=== PATIENT | female | born 2000 | race Caucasian/White ===

== ENCOUNTER 2018-07-04 14:47 | Inpatient (IN) ==
--- NOTE | 2018-07-04 15:11 | Emergency Department Note ---
Disposition Clinical Impression: Deep vein thrombosis (DVT) of left upper extremity PICC line infection Qualifiers: Encounter type: initial encounter Qualified Code(s): T80.219A - Unspecified infection due to central venous catheter, initial encounter Disposition: Transfer Critical Access Hosp Condition: Good Referrals: NONE,PCP [Primary Care Provider] - Forms: ED Satisfaction Letter Time of Disposition: 16:50 General Adult HPI - General Chief complaint: ED Recheck/Abnormal Lab/Rx Stated complaint: PICC problem Time Seen by Provider: 07/04/18 15:07 Source: patient Limitations: no limitations Nursing Notes Reviewed: Yes Vital Signs Reviewed: Yes - History of Present Illness HPI Narrative: Female patient presenting to the emergency department complaining of a one-week history of redness and pain to her left upper arm. Patient has a PICC line placed. She states that her home health nurse came today to remove it once unable to remove this in the center to the ER. She reports erythema and warmth to this area for the past week. She thought this was secondary to a tape allergy. She denies any shortness of breath or chest pain. She states she would not be here if it was not for the PICC not coming out. She has been on vancomycin through this PICC line for infection of hardware to her right arm after a traumatic injury. She was positive for MRSA at that time. Patient denies any fevers or chills. Pain Scale: 0 - Related Data Home Medications Medication Instructions Recorded Confirmed DiphenhydraMINE [Benadryl] 1 cap PO HS 01/02/17 06/23/18 Vancomycin HCl in 5 % Dextrose 1.75 gm IV TID 06/23/18 06/23/18 [Vancomycin 1.75 Gram/500Ml-D5w] Previous Rx's Medication Instructions Recorded methylPREDNISolone [Medrol] 4 mg PO DAILY 6 Days #21 tablet 06/23/18 Allergies Allergy/AdvReac Type Severity Reaction Status Date / Time Tomato Allergy Hives Verified 07/04/18 14:53 All systems ED: reviewed and negative except as stated. Review of Systems: As Per HPI Constitutional: Denies: fever, chills ENT ED: Denies: congestion Cardiovascular: Denies: chest pain, palpitations, syncope Respiratory: Denies: cough, dyspnea Gastrointestinal: Denies: abdominal pain, nausea, vomiting, diarrhea Genitourinary: Denies: urgency, dysuria, frequency Musculoskeletal: Reports: other (To left upper arm.). Denies: back pain, neck pain Integumentary: Reports: rash (To left upper arm.) Past Medical History - Past Medical History Attestation: Yes The following information was validated with the patient. 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 Absent: scleral icterus - ENT ENT exam: normal exam, normal oropharynx, mucous membranes moist - Neck Neck exam: Present: normal inspection, full ROM, trachea midline - Chest Chest inspection: Present: normal inspection, symmetric chest wall rise - Respiratory Respiratory exam: Present: normal lung sounds bilaterally. Absent: respiratory distress, accessory muscle use - Cardiovascular Cardiovascular exam: Present: regular rate, normal rhythm, normal heart sounds - Abdominal Exam Abdominal exam: Present: soft, Non-Tender. Absent: tenderness, distention, guarding, rebound, rigidity, organomegaly - Extremities Exam Extremities exam: Present: tenderness (To palpation of left upper arm.), normal capillary refill, other (Swelling to left upper arm. Patient does have induration and erythema and warmth to the left upper extremity as well. She has a PICC line that is in place to the left upper extremity. There is a purulent discharge around this as well.). Absent: pedal edema - Back Exam Back exam: Present: normal inspection, full ROM. Absent: tenderness - Neurological Exam Neurological exam: Present: alert, oriented X3 - Psychiatric Psychiatric exam: Present: normal affect, normal mood - Skin Skin exam: Present: warm, dry, intact, normal color. Absent: rash Course Course Narrative: We did attempt to remove the PICC line. It was not an easy removal so we have left it in our consulting the PICC team at this time. There was a purulent discharge around the insertion site. The left upper arm is erythematous. Findings consistent with cellulitis. We did get a Doppler of this upper extremity as well as she had a DVT to the brachial vein. The PICC line did not appear to be going into the brachial vein. This is being managed by [facility]. We will start patient on heparin for the DVT and place patient on Zosyn for the cellulitis and infection to the line. Patient is agreeable with this. Vital Signs Temperature 98.1 F 07/04/18 14:49 Pulse Rate 102 07/04/18 14:49 Respiratory Rate 16 07/04/18 14:49 Blood Pressure 142/99 07/04/18 14:49 O2 Sat by Pulse Oximetry 97 07/04/18 14:49 Temperature 98.1 F 07/04/18 14:49 Pulse Rate 102 07/04/18 14:49 Respiratory Rate 16 07/04/18 14:49 Blood Pressure 142/99 07/04/18 14:49 O2 Sat by Pulse Oximetry 97 07/04/18 14:49 Oxygen Delivery Oxygen Delivery Room Air Medical Decision Making - Medical Records Medical records reviewed: Yes I reviewed the patient's medical records. - Lab Data Lab results reviewed: Yes I reviewed the patient's lab results. Result diagrams: 07/04/18 15:20 07/04/18 15:20 Lab Results 07/04/18 07/04/18 Range/Units 15:20 15:20 WBC 8.6 (4.3-11.1) K/mcL RBC 4.84 (3.82-4.97) M/mcL Hgb 11.3 L (11.5-15.4) g/dL Hct 36.8 (35.3-44.9) % MCV 76.0 L (83.0-100.0) fL MCH 23.3 L (28.0-33.3) pg MCHC 30.7 L (31.6-35.5) g/dL RDW 14.3 (11.5-14.5) % Plt Count 297 (140-400) K/mcL MPV 9.7 (9.4-12.4) fL Immature Gran % 0.2 (0-4) % Seg Neutrophils % 63.6 % Lymphocytes % 19.8 % Monocytes % 6.3 % Eosinophils % 9.6 % Basophils % 0.5 % Neutrophils # 5.4 (1.6-8.9) K/mcL Lymphocytes # 1.7 (0.6-4.6) K/mcL Monocytes # 0.5 (0.0-1.3) K/mcL Eosinophils # 0.8 H (0.0-0.6) K/mcL Basophils # 0.0 (0.0-0.2) K/mcL Sodium 136 (136-145) mEq/L Potassium 3.5 (3.5-5.1) mEq/L Chloride 106 (98-107) mEq/L Carbon Dioxide 24 (23-29) mEq/L BUN 9 (6-20) mg/dL Creatinine 0.56 L (0.60-1.20) mg/dL Est GFR ( Amer) > 60 Est GFR (Non-Af Amer) > 60 BUN/Creatinine Ratio 16 (6-26) Glucose 97 (70-105) mg/dL Calculated Osmolality 281 (280-300) Calcium 9.5 (8.6-10.3) mg/dL - Radiology Data Radiology results reviewed: Yes I reviewed the patient's radiology results.
[2018-07-04 15:50] LABS: Basophils % 0.5 %; Eosinophils # 0.8 K/mcL (0.0-0.6); Eosinophils % 9.6 %; Hematocrit 36.8 % (35.3-44.9); Hemoglobin 11.3 g/dL (11.5-15.4); Immature Granulocytes % 0.2 % (0-4); Lymphocytes # 1.7 K/mcL (0.6-4.6); Lymphocytes % 19.8 %; Mean Corpuscular HGB Conc 30.7 g/dL (31.6-35.5); Mean Corpuscular Hemoglobin 23.3 pg (28.0-33.3); Mean Platelet Volume 9.7 fL (9.4-12.4); Monocytes # 0.5 K/mcL (0.0-1.3); Monocytes % 6.3 %; Neutrophils # 5.4 K/mcL (1.6-8.9); Platelet Count 297 K/mcL (140-400); Red Blood Count 4.84 M/mcL (3.82-4.97); Red Cell Distribution Width 14.3 % (11.5-14.5); Segmented Neutrophils % 63.6 %
--- NOTE | 2018-07-04 15:59 | Emergency Department Note ---
Disposition Clinical Impression: Deep vein thrombosis (DVT) of left upper extremity Qualifiers: Affected thrombotic vein of extremity: brachial Chronicity: acute Qualified Code(s): I82.622 - Acute embolism and thrombosis of deep veins of left upper extremity PICC line infection Qualifiers: Encounter type: initial encounter Qualified Code(s): T80.219A - Unspecified infection due to central venous catheter, initial encounter Disposition: Transfer Other Referrals: NONE,PCP [Primary Care Provider] - Forms: ED Satisfaction Letter General Adult HPI - General Chief complaint: ED Recheck/Abnormal Lab/Rx Stated complaint: PICC problem Time Seen by Provider: 07/04/18 15:07 Source: patient Limitations: no limitations - History of Present Illness Pain Scale: 0 - Related Data Home Medications Medication Instructions Recorded Confirmed DiphenhydraMINE [Benadryl] 1 cap PO HS 01/02/17 06/23/18 Vancomycin HCl in 5 % Dextrose 1.75 gm IV TID 06/23/18 06/23/18 [Vancomycin 1.75 Gram/500Ml-D5w] Previous Rx's Medication Instructions Recorded methylPREDNISolone [Medrol] 4 mg PO DAILY 6 Days #21 tablet 06/23/18 Allergies Allergy/AdvReac Type Severity Reaction Status Date / Time Tomato Allergy Hives Verified 07/04/18 14:53 Constitutional: Denies: fever, chills ENT ED: Denies: congestion Cardiovascular: Denies: chest pain, palpitations, syncope Respiratory: Denies: cough, dyspnea Gastrointestinal: Reports: other ("Gurgling sensation."). 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 - Social History Smoking Status: Never smoker Smokeless Tobacco Status: No Alcohol use: Reports: none Drug use: Reports: none Physical Exam - General Limitations: no limitations General appearance: alert, in no apparent distress, obese Course Vital Signs Temperature 98.1 F 07/04/18 14:49 Pulse Rate 102 07/04/18 14:49 Respiratory Rate 16 07/04/18 14:49 Blood Pressure 142/99 07/04/18 14:49 O2 Sat by Pulse Oximetry 97 07/04/18 14:49 Temperature 98.1 F 07/04/18 14:49 Pulse Rate 102 07/04/18 14:49 Respiratory Rate 16 07/04/18 14:49 Blood Pressure 142/99 07/04/18 14:49 O2 Sat by Pulse Oximetry 97 07/04/18 14:49 Oxygen Delivery Oxygen Delivery Room Air Medical Decision Making - MDM Narrative Medical decision making narrative: It was reported to me from the central services tech that she had a left upper extremity DVT of the brachial vein. Her PICC line appeared to be in her basilic vein. We will start her on heparin drip. We will also start her on Zosyn. She has been on vancomycin chronically. She follows with [facility] for this. We will need to transfer her up to [facility] for treatment. - Medical Records Medical records reviewed: Yes I reviewed the patient's medical records. - Lab Data Lab results reviewed: Yes I reviewed the patient's lab results. Result diagrams: 07/04/18 15:20 07/04/18 15:20 Lab Results 07/04/18 07/04/18 Range/Units 15:20 15:20 WBC 8.6 (4.3-11.1) K/mcL RBC 4.84 (3.82-4.97) M/mcL Hgb 11.3 L (11.5-15.4) g/dL Hct 36.8 (35.3-44.9) % MCV 76.0 L (83.0-100.0) fL MCH 23.3 L (28.0-33.3) pg MCHC 30.7 L (31.6-35.5) g/dL RDW 14.3 (11.5-14.5) % Plt Count 297 (140-400) K/mcL MPV 9.7 (9.4-12.4) fL Immature Gran % 0.2 (0-4) % Seg Neutrophils % 63.6 % Lymphocytes % 19.8 % Monocytes % 6.3 % Eosinophils % 9.6 % Basophils % 0.5 % Neutrophils # 5.4 (1.6-8.9) K/mcL Lymphocytes # 1.7 (0.6-4.6) K/mcL Monocytes # 0.5 (0.0-1.3) K/mcL Eosinophils # 0.8 H (0.0-0.6) K/mcL Basophils # 0.0 (0.0-0.2) K/mcL Sodium 136 (136-145) mEq/L Potassium 3.5 (3.5-5.1) mEq/L Chloride 106 (98-107) mEq/L Carbon Dioxide 24 (23-29) mEq/L BUN 9 (6-20) mg/dL Creatinine 0.56 L (0.60-1.20) mg/dL Est GFR ( Amer) > 60 Est GFR (Non-Af Amer) > 60 BUN/Creatinine Ratio 16 (6-26) Glucose 97 (70-105) mg/dL Calculated Osmolality 281 (280-300) Calcium 9.5 (8.6-10.3) mg/dL Critical Care Time Critical Care Time: No Attestation Statement - Attestation Attestation: I examined this patient and my medical decision-making was reviewed with the Resident Physician. I agree with the documented findings, disposition and treatment plan as described except to the extent set forth below. 17-year-old female presents emergency room for PICC line evaluation involving the left upper extremity. Specifically have her PICC line removed today at home health nurse but she was unable to get the PICC line out. She sent her to the ER. Interestingly patient admits that her left arm is gotten more red and swollen over 2 weeks. There is pus drainage from the site. will have PICC team eval this. it needs to be removed. concenrs for infection in this left UE. will also do Doppler of this arm to eval for dvt.
[2018-07-04 16:10] LABS: BUN/Creatinine Ratio 16 (6-26); Blood Urea Nitrogen 9 mg/dL (6-20); Calcium 9.5 mg/dL (8.6-10.3); Carbon Dioxide 24 mEq/L (23-29); Chloride 106 mEq/L (98-107); Glucose 97 mg/dL (70-105); Osmolality,Calculated 281 (280-300); Potassium 3.5 mEq/L (3.5-5.1); Sodium 136 mEq/L (136-145); eGFR For Non-African Americans > 60
[2018-07-04] MEDS ORDERED: *HR* Heparin 5,000 UNIT/ML VIAL IVP ONE (16:41)
[2018-07-04] MEDS ORDERED: *HR* Heparin 5,000 UNIT/ML VIAL IVP PRN ×2 (16:41)
[2018-07-04] MEDS ORDERED: Piperacillin/Tazobactam 4.5 GM in Water for inj. (sterile) 20 ML 20 ML IVP ONE (16:49)
[2018-07-04] MEDS ORDERED: Piperacillin/Tazobactam 3.375 GM in Water for inj. (sterile) 20 ML 20 ML IVP ONE (16:50)
[2018-07-04] MEDS ORDERED: 0.9 % Sodium Chloride 500 ML IVC ONE (16:51)
[2018-07-04 17:04] LABS: Heparin anti-factor XA UFH 0.03 IU/mL (0.30-0.70); INR 1.1; Prothrombin Time 12.8 Seconds (9.4-12.1)
[2018-07-04] MEDS: Heparin 25,000 UNIT/500 ML D5W 25,000 UNIT/500 ML BAG IVC SCH (17:51)
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
[2018-07-04] MEDS ORDERED: Acetaminophen 325 MG TABLET PO PRN (20:32)
[2018-07-04] MEDS ORDERED: traMADol 50 MG TABLET PO PRN (20:33)
--- NOTE | 2018-07-04 21:26 | Event Note ---
Date of Encounter: 07/04/18 Time of Encounter: 21:15 Curbside discussion regarding this pt. w/Dr. Phillips who has hx of seeing this pt. I was alerted by pts. nurse DEBBIE Polo that pt. reports she takes seizure medication that she thinks starts with an "L" but ran out of it three days ago and left bottle at a friend's house. Last known Rx was filled in 09/2017 for lamotrigine 100 mg daily. Recommendation from Dr. Phillips is Keppra 50 mg BID to start tonight and for the pt. to see him as OP after discharge for Rx maintenance. Seizure precautions and padding to bed rails ordered. Falls/safety precautions.
[2018-07-04] MEDS: levETIRAcetam 250 MG TABLET PO SCH (21:49)
[2018-07-04] MEDS ORDERED: Naloxone 0.4 MG/ML INJ IVP PRN (21:53)
[2018-07-05] MEDS: Piperacillin/Tazobactam 3.375 GM in 0.9 % Sodium Chloride Mini Bag 100 ML IVPB SCH ×3 (00:20→16:51)
[2018-07-05 01:17] LABS: Basophils % 0.2 %; Eosinophils % 10.6 %; Hematocrit 34.8 % (35.3-44.9); Hemoglobin 10.7 g/dL (11.5-15.4); Immature Granulocytes % 0.3 % (0-4); Lymphocytes # 2.6 K/mcL (0.6-4.6); Lymphocytes % 28.1 %; Mean Corpuscular HGB Conc 30.7 g/dL (31.6-35.5); Mean Corpuscular Hemoglobin 23.1 pg (28.0-33.3); Mean Platelet Volume 9.9 fL (9.4-12.4); Monocytes # 0.8 K/mcL (0.0-1.3); Monocytes % 8.8 %; Neutrophils # 4.7 K/mcL (1.6-8.9); Platelet Count 284 K/mcL (140-400); Red Blood Count 4.64 M/mcL (3.82-4.97); Red Cell Distribution Width 14.4 % (11.5-14.5)
[2018-07-05 01:23] LABS: INR 1.1; Prothrombin Time 12.9 Seconds (9.4-12.1)
[2018-07-05 01:26] LABS: Activated Partial Thrombo Time 71.6 Seconds (26.0-36.0)
[2018-07-05 01:38] LABS: Alanine Aminotransferase 6 Units/L (7-52); Albumin 3.8 g/dL (3.5-5.7); Albumin/Globulin Ratio 1.4 (1.1-2.2); Alkaline Phosphatase 73 Units/L (34-104); Aspartate Amino Transferase 11 Units/L (13-39); BUN/Creatinine Ratio 13 (6-26); Bilirubin,Total 0.3 mg/dL (0.3-1.0); Blood Urea Nitrogen 8 mg/dL (6-20); Calcium 9.2 mg/dL (8.6-10.3); Carbon Dioxide 22 mEq/L (23-29); Chloride 109 mEq/L (98-107); Chol/HDL Ratio 4.2 (0-4.9); Cholesterol 129 mg/dL (< 200); Globulin 2.7 g/dL (2.4-3.5); Glucose 119 mg/dL (70-105); HDL Cholesterol 31 mg/dL (40-59); LDL Cholesterol,Calculated 73 mg/dL (0-99); Osmolality,Calculated 285 (280-300); Potassium 3.7 mEq/L (3.5-5.1); Sodium 138 mEq/L (136-145); Total Protein 6.5 g/dL (6.4-8.9); Triglycerides 127 mg/dL (< 150); eGFR For Non-African Americans > 60
[2018-07-05] MEDS: levETIRAcetam 250 MG TABLET PO SCH ×2 (08:04→21:08)
--- NOTE | 2018-07-05 11:05 | Internal Med Progress Note ---
Hospitalist Progress Note - Encounter Date of Encounter: 07/05/18 Time of Encounter: 09:45 - Subjective Interval History: Patient is doing well overall. Complains of itching and pain in her left upper extremity although this is improving. She has not noticed any further discharge from her recent PICC line site. No fevers or chills. No nausea or vomiting. - Exam Vitals: Temp Pulse Resp BP Pulse Ox 98.1 F 78 15 131/79 99 07/05/18 07:32 07/05/18 07:32 07/05/18 07:32 07/05/18 07:32 07/05/18 07:32 Exam: General: Patient is alert, no acute distress, oriented x 3 Respiratory: Good respiratory effort. Normal breath sounds. No wheezing or crackles. Cardiovascular: Regular rate and rhythm. s1 and s2 normal No clicks, rubs, gallops, or murmurs. No pedal edema Abdomen: Abdomen is soft, nontender. Bowel sounds are present Musculoskeletal: Spontaneously moving all extremities, swelling and redness noted in the left from just around the shoulder joint to mid part of the left arm. It appears to be circumferential. DVT palpable in the brachial vein. Skin: warm, dry, intact. Neuro: Alert oriented x 3 normal cranial nerves, no focal deficits - Assessment and Plan (1) PICC line infection Current Visit: Yes Status: Suspected Assessment and Plan: Infection that PICC line catheter insertion site. Purulent discharge noted yesterday. Appears to be superficial cellulitis/thrombophlebitis to my examination today. No signs of deep wound infection. No discharge noted today. Following culture results. If cultures remain negative, we will transition to oral antibiotics to treat superficial cellulitis/thrombophlebitis (2) Deep vein thrombosis (DVT) of left upper extremity Current Visit: Yes Status: Acute Assessment and Plan: Due to recent PICC line. On IV heparin. We will continue IV heparin to cultures and lites. If cultures remain negative, and transition to oral anticoagulation with Eliquis or Xarelto. (3) History of fracture of humerus Current Visit: Yes Status: Acute Assessment and Plan: With possible hardware infection. Completed IV antibiotic course. - Time Spent with Patient Total time spent is greater than 50% in coordination of care (as documented) at patient's floor/unit and/or counseling patient: Internal Medicine: Result - Labs CBC & Chem 7: 07/05/18 00:37 07/05/18 00:37 Labs: Short CBC 07/05/18 Range/Units 00:37 WBC 9.1 (4.3-11.1) K/mcL Hgb 10.7 L (11.5-15.4) g/dL Hct 34.8 L (35.3-44.9) % Plt Count 284 (140-400) K/mcL Neutrophils # 4.7 (1.6-8.9) K/mcL BMP 07/05/18 00:37 Sodium 138 Potassium 3.7 Chloride 109 H Carbon Dioxide 22 L BUN 8 Creatinine 0.62 Glucose 119 H Calcium 9.2 Liver Function 07/05/18 Range/Units 00:37 Total Bilirubin 0.3 (0.3-1.0) mg/dL AST 11 L (13-39) Units/L ALT 6 L (7-52) Units/L Alkaline Phosphatase 73 (34-104) Units/L Albumin 3.8 (3.5-5.7) g/dL - ABG Interpretation ABG results: PT/INR, D-dimer PT 12.9 Seconds (9.4-12.1) H 07/05/18 00:37 Consult Discharge Plan - Plan Referrals: NONE,PCP [Primary Care Provider] - (1) PICC line infection Qualifiers: Encounter type: initial encounter Qualified Code(s): T80.219A - Unspecified infection due to central venous catheter, initial encounter (2) Deep vein thrombosis (DVT) of left upper extremity Qualifiers: Affected thrombotic vein of extremity: brachial Chronicity: acute Qualified Code(s): I82.622 - Acute embolism and thrombosis of deep veins of left upper extremity
[2018-07-05] MEDS: Heparin 25,000 UNIT/500 ML D5W 25,000 UNIT/500 ML BAG IVC SCH (21:09)
[2018-07-06] MEDS: Piperacillin/Tazobactam 3.375 GM in 0.9 % Sodium Chloride Mini Bag 100 ML IVPB SCH ×3 (00:37→16:53)
[2018-07-06 04:58] LABS: Basophils % 0.4 %; Eosinophils # 0.8 K/mcL (0.0-0.6); Eosinophils % 9.9 %; Hematocrit 34.1 % (35.3-44.9); Hemoglobin 10.5 g/dL (11.5-15.4); Immature Granulocytes % 0.2 % (0-4); Lymphocytes # 2.9 K/mcL (0.6-4.6); Lymphocytes % 36.2 %; Mean Corpuscular HGB Conc 30.8 g/dL (31.6-35.5); Mean Corpuscular Volume 74.8 fL (83.0-100.0); Mean Platelet Volume 9.4 fL (9.4-12.4); Monocytes # 0.4 K/mcL (0.0-1.3); Monocytes % 5.5 %; Neutrophils # 3.8 K/mcL (1.6-8.9); Platelet Count 272 K/mcL (140-400); Red Blood Count 4.56 M/mcL (3.82-4.97); Red Cell Distribution Width 14.3 % (11.5-14.5); Segmented Neutrophils % 47.8 %
[2018-07-06 05:18] LABS: Alanine Aminotransferase 8 Units/L (7-52); Albumin 3.8 g/dL (3.5-5.7); Albumin/Globulin Ratio 1.4 (1.1-2.2); Alkaline Phosphatase 72 Units/L (34-104); Aspartate Amino Transferase 11 Units/L (13-39); BUN/Creatinine Ratio 9 (6-26); Bilirubin,Total 0.4 mg/dL (0.3-1.0); Blood Urea Nitrogen 6 mg/dL (6-20); Calcium 9.3 mg/dL (8.6-10.3); Carbon Dioxide 23 mEq/L (23-29); Chloride 108 mEq/L (98-107); Globulin 2.8 g/dL (2.4-3.5); Glucose 113 mg/dL (70-105); Osmolality,Calculated 284 (280-300); Potassium 3.5 mEq/L (3.5-5.1); Sodium 138 mEq/L (136-145); Total Protein 6.6 g/dL (6.4-8.9); eGFR For Non-African Americans > 60
[2018-07-06] MEDS: levETIRAcetam 250 MG TABLET PO SCH ×2 (09:32→21:42)
--- NOTE | 2018-07-06 11:02 | Internal Med Progress Note ---
Hospitalist Progress Note - Encounter Date of Encounter: 07/06/18 Time of Encounter: 09:00 - Subjective Interval History: Patient is lying in bed. Somnolent but easily awakes. Denies any new complaints at this time. Erythema and redness over her left upper extremity has improved. No fevers or chills reported overnight. No chest pain. No palpitations. No cough or shortness of breath. - Exam Vitals: Temp Pulse Resp BP Pulse Ox 98.1 F 92 16 142/78 97 07/06/18 07:32 07/06/18 07:32 07/06/18 07:32 07/06/18 07:32 07/06/18 07:32 Exam: General: Patient is alert, no acute distress, oriented x 3 Respiratory: Good respiratory effort. Normal breath sounds. No wheezing or crackles. Cardiovascular: Regular rate and rhythm. s1 and s2 normal No clicks, rubs, gallops, or murmurs. No pedal edema Abdomen: Abdomen is soft, nontender. Bowel sounds are present Musculoskeletal: Spontaneously moving all extremities, erythema over the left upper arm has improved. No open wounds. No discharge noted. Skin: warm, dry, intact. Neuro: Alert oriented x 3 normal cranial nerves, no focal deficits - Assessment and Plan (1) PICC line infection Current Visit: Yes Status: Acute Assessment and Plan: Catheter tip culture growing Proteus that is pansensitive. Blood cultures have so far been negative. Will consult infectious disease for recommendations on antibiotics. (2) Deep vein thrombosis (DVT) of left upper extremity Current Visit: Yes Status: Acute Assessment and Plan: Continue anticoagulation. Currently on heparin. We will transition to Eliquis. (3) History of fracture of humerus Current Visit: Yes Status: Acute Assessment and Plan: With history of possible hardware infection. Patient has completed long-term course of IV antibiotics. - Time Spent with Patient Total time spent is greater than 50% in coordination of care (as documented) at patient's floor/unit and/or counseling patient: Internal Medicine: Result - Labs CBC & Chem 7: 07/06/18 04:00 07/06/18 04:00 Labs: Short CBC 07/06/18 Range/Units 04:00 WBC 8.0 (4.3-11.1) K/mcL Hgb 10.5 L (11.5-15.4) g/dL Hct 34.1 L (35.3-44.9) % Plt Count 272 (140-400) K/mcL Neutrophils # 3.8 (1.6-8.9) K/mcL BMP 07/06/18 04:00 Sodium 138 Potassium 3.5 Chloride 108 H Carbon Dioxide 23 BUN 6 Creatinine 0.68 Glucose 113 H Calcium 9.3 Liver Function 07/06/18 Range/Units 04:00 Total Bilirubin 0.4 (0.3-1.0) mg/dL AST 11 L (13-39) Units/L ALT 8 (7-52) Units/L Alkaline Phosphatase 72 (34-104) Units/L Albumin 3.8 (3.5-5.7) g/dL - ABG Interpretation ABG results: PT/INR, D-dimer PT 12.9 Seconds (9.4-12.1) H 07/05/18 00:37 Consult Discharge Plan - Plan Referrals: NONE,PCP [Primary Care Provider] - (1) PICC line infection Qualifiers: Encounter type: initial encounter Qualified Code(s): T80.219A - Unspecified infection due to central venous catheter, initial encounter (2) Deep vein thrombosis (DVT) of left upper extremity Qualifiers: Affected thrombotic vein of extremity: brachial Chronicity: acute Qualified Code(s): I82.622 - Acute embolism and thrombosis of deep veins of left upper extremity
[2018-07-06] MEDS: Apixaban 5 MG TABLET PO SCH ×2 (11:57→21:42)
[2018-07-07] MEDS: Piperacillin/Tazobactam 3.375 GM in 0.9 % Sodium Chloride Mini Bag 100 ML IVPB SCH ×2 (00:01→08:45)
[2018-07-07 05:39] LABS: Basophils % 0.3 %; Eosinophils # 0.9 K/mcL (0.0-0.6); Eosinophils % 9.9 %; Hematocrit 34.8 % (35.3-44.9); Hemoglobin 10.5 g/dL (11.5-15.4); Immature Granulocytes % 0.3 % (0-4); Lymphocytes # 2.5 K/mcL (0.6-4.6); Lymphocytes % 27.8 %; Mean Corpuscular HGB Conc 30.2 g/dL (31.6-35.5); Mean Corpuscular Hemoglobin 22.8 pg (28.0-33.3); Mean Corpuscular Volume 75.5 fL (83.0-100.0); Mean Platelet Volume 10.1 fL (9.4-12.4); Monocytes # 0.6 K/mcL (0.0-1.3); Monocytes % 6.9 %; Neutrophils # 4.9 K/mcL (1.6-8.9); Platelet Count 301 K/mcL (140-400); Red Blood Count 4.61 M/mcL (3.82-4.97); Red Cell Distribution Width 14.4 % (11.5-14.5); Segmented Neutrophils % 54.8 %
[2018-07-07 05:59] LABS: Alanine Aminotransferase 7 Units/L (7-52); Albumin/Globulin Ratio 1.4 (1.1-2.2); Alkaline Phosphatase 72 Units/L (34-104); Aspartate Amino Transferase 11 Units/L (13-39); BUN/Creatinine Ratio 9 (6-26); Bilirubin,Total 0.3 mg/dL (0.3-1.0); Blood Urea Nitrogen 6 mg/dL (6-20); Calcium 9.5 mg/dL (8.6-10.3); Carbon Dioxide 21 mEq/L (23-29); Chloride 109 mEq/L (98-107); Globulin 2.8 g/dL (2.4-3.5); Glucose 105 mg/dL (70-105); Osmolality,Calculated 282 (280-300); Potassium 3.6 mEq/L (3.5-5.1); Sodium 137 mEq/L (136-145); Total Protein 6.8 g/dL (6.4-8.9); eGFR For Non-African Americans > 60
[2018-07-07] MEDS: levETIRAcetam 250 MG TABLET PO SCH (08:46)
[2018-07-07] MEDS: Apixaban 5 MG TABLET PO SCH (08:46)
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
[2018-07-07 14:22] VITALS: BP 141/79
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
[2018-07-07] MEDS ORDERED: Sulfamethoxazole/Trimeth DS 1 EACH TABLET PO SCH (21:00)
[2018-07-07] MEDS ORDERED: Apixaban 5 MG TABLET PO SCH (21:00)
== END 2018-07-07 16:57 | disposition home or self-care (01) | DRG 721 ==
LOC: EMEROOARM 14:47 → 3ANU 18:05 → SUATTDRO 18:05 → 3ANU 19:10
PROVIDERS: ADMIT Internal Medicine; ATTEND Internal Medicine